=== PATIENT | female | born 1995 | race Caucasian/White ===

== ENCOUNTER → 2016-11-14 | Outpatient (CLI) | payer BC | END | disposition home or self-care (01) | LOC: C.RDSM 16:41 | PROVIDERS: ATTEND Orthopaedic Surgery | DX: M25.562 Pain in left knee (principal) ==

== ENCOUNTER → 2016-11-21 | Outpatient (CLI) | payer BC ==
--- NOTE | 2016-11-21 09:00 | DIAGNOSTIC IMAGING REPORT ---
MRI OF THE LEFT KNEE WITHOUT CONTRAST CLINICAL HISTORY: Left lateral knee pain following twisting injury. Previous ACL reconstruction. COMPARISON STUDY: Knee radiographs November 14, 2016. TECHNIQUE: Utilizing a 1.5 Padmini magnet and dedicated coil, multiplanar, multiecho imaging of the left knee was performed without intravenous or intraarticular contrast. FINDINGS: Alignment of the left knee is anatomic. There is a moderate-sized left knee joint effusion. There is no marrow edema or marrow replacement. The ACL graft is intact. The posterior cruciate ligament is intact. The medial collateral ligament and lateral collateral ligament complex are intact. There is moderate cartilage thinning with cortical irregularity of the lateral femoral condyle which suggests an old impaction injury likely related to the previous ACL tear. Otherwise, the cartilage within the three compartments appears intact. Note is made of a complex bucket handle tear of the medial meniscus with a large flipped fragment within the intercondylar notch located along the medial aspect of the anterior and posterior cruciate ligaments. The posterior horn of the lateral meniscus is somewhat diminutive but no definite lateral meniscal tear is identified. There is no evidence for fracture. There is no suspicious marrow replacement. IMPRESSION: 1. Extensive bucket-handle tear of the medial meniscus with large meniscal fragment within the intercondylar notch. 2. Status post ACL reconstruction. Graft intact. 3. Moderate-sized left knee joint effusion. 4. Evidence for an old impaction injury of the lateral femoral condyle. Electronically signed by: Abhinav Cordero M.D. 11/21/2016 8:59 AM Dictated Date/Time: 11/21/2016 8:43 AM
== END | disposition home or self-care (01) ==
LOC: C.MRI 07:50
PROVIDERS: ATTEND Orthopaedic Surgery
DX: S83.212A Bucket-handle tear of medial meniscus, current injury, left knee, initial encounter (principal); X58.XXXA Exposure to other specified factors, initial encounter; M25.462 Effusion, left knee; Z98.890 Other specified postprocedural states

== ENCOUNTER → 2016-12-29 | Day surgery (SDC) | payer BC ==
[2016-12-04 13:36] VITALS: Ht 163.8 cm; Wt 75.0 kg
[~2016-12-29] VITALS: Ht 163.8 cm; Wt 75.0 kg
[~2016-12-29] MED LIST: ATROPINE SULFATE 0.1 MG/ML 5ML SYR IV PRN; CEFAZOLIN 2000MG IV PUSH 10 ML IV SCH; DEXAMETHASONE SOD INJ 4 MG/ML VIAL ONE; EpHEDrine SULFATE 50MG/5ML SYR ONE; EpHEDrine SULFATE INJ 50 MG/ML AMP IV PRN; EpINEphrine HCL INJ 1 MG/ML 5ML SYRINGE ONE; FENTANYL CITRATE INJ 50 MCG/1 ML 2 ML VIAL IV PRN; FENTANYL CITRATE INJ 50 MCG/1 ML 2 ML VIAL ONE; HYDROmorphone INJ 1 MG/ML SYR IV PRN; KETOROLAC TROMETHAMINE 30 MG/ML VIAL ONE; LACTATED RINGER'S 1000ML 1,000 ML IV SCH; LIDO 2%/EPINEPHRINE 1:100000 20 ML VIAL INFIL ONE; LIDOCAINE HCL 2% 2 ML VIAL (20MG/ML) ONE; METOCLOPRAMIDE HCL INJ 5 MG/ML 2 ML VIAL IV PRN; MIDAZOLAM HCL 1 MG/ML 2ML VIAL ONE; MoRPHine SULFATE 4 MG/ML 1 ML CARP\\VIAL IV PRN; ONDANSETRON INJ 2 MG/ML 2 ML VIAL IV PRN; ONDANSETRON INJ 2 MG/ML 2 ML VIAL ONE; OXYCODONE/ACETAMINOPHEN 5-325 TAB PO PRN; PROMETHAZINE HCL INJ 12.5 MG in SODIUM CHLORIDE 0.9% 50ML 50 ML IV PRN; PROPOFOL IV EMULSION 10 MG/ML 20 ML VIAL IV ONE; ROPIVACAINE 0.5% 5 MG/ML 30 ML VIAL ONE; SODIUM CHLORIDE 0.9% 1000ML 1,000 ML IV SCH; SODIUM CHLORIDE 0.9% 1000ML IV SCH
--- NOTE | 2016-12-29 08:57 | History & Physical Bridge - SC ---
H&P Re-Evaluation Bridge Note: I have examined the patient, reviewed the History & Physical and in the interval since the performance of the History & Physical I have noted the following changes of clinical significance: No changes noted
--- NOTE | 2016-12-29 10:06 | Discharge Instructions-SurgCtr ---
Discharge Instructions Date of Service Dec 29, 2016. Visit Reason for Visit: Left Knee Medial Meniscus Tear Discharge Discharge Diagnosis / Problem: s/p Right knee arthrsoscopy partial medial meniscectomy Discharge Goals Goal(s): Decrease discomfort, Improve function, Increase independence Medications Restart Stopped Medication(s): Please take medications that were prescribed to you at your pre-operative history and physical appointment, which include pain medication, anti- inflammatory, and Aspirin for DVT prophylaxis. Activity Recommendations Activity Limitations: as noted below Lifting Limitations: gradually increase as tolerated Exercise/Sports Limitations: gradually increase as tolerated Shower/Bathe: keep incision dry Driving or Machine Use: resume 3 days after discharge (if motion improved and no longer taking narcotic pain medication) Weightbearing Status: Left weightbearing (as tolerated) Anesthesia . Post Anesthesia Instructions: If you have had General Anesthesia or IV Sedation: * Do not drive today. * Resume driving when surgeon permits. * Do not make important decisions or sign legal documents today. * Call surgeon for: 1. Temperature elevations greater than 101 degrees F. 2. Uncontrollable pain. 3. Excessive bleeding. 4. Persistent nausea and vomiting. 5. Medication intolerance (nausea, vomiting or rash). * For nausea and vomiting use only clear liquids such as: tea, soda, bouillon until nausea subsides, then gradually increase diet as tolerated. * If you have any concerns or questions, call your surgeon's office. If physician is unavailable and it is an emergency, call 101 or go to the nearest emergency room. . Instructions / Follow-Up Instructions / Follow-Up DIET: * Resume previous diet. MEDICATIONS: * Please take your prescriptions as instructed at your pre-op appointment and/ or see medication discharge instructions listed above. * If concerns develop, call your physician's office at . SPECIAL CARE INSTRUCTIONS: * Ice/Elevate as instructed. * Keep dressing clean, dry, intact. * Your surgical extremity may be discolored due to prepping agents used on the skin. A bluish-green tint is a normal variant and should not cause alarm. Call your doctor at [phone] if: * Temperature above 101 degrees * Pain not relieved by pain medicine ordered * There is increased drainage or redness from any incision * You have any unanswered questions, problems or concerns. FOLLOW UP VISIT: * If not already scheduled, please call the office at to schedule a follow-up appointment. Diet Recommendations Home Diet: resume previous diet Procedures Procedures Performed: left Knee Arthroscopic Partial Medial Meniscectomy Pending Studies Studies pending at discharge: no Medical Emergencies . Who to Call and When: Medical Emergencies: If at any time you feel your situation is an emergency, please call 911 immediately. . Non-Emergent Contact Non-Emergency issues call your: Primary Care Provider . . "Provider Documentation" section prepared by Jesus Manuel Larkin. . [place] Drug Monitoring Program Search Results: no issues identified
--- NOTE | 2016-12-29 10:30 | [facility] Post Operative Brief Note ---
Immediate Operative Summary Operative Date Dec 29, 2016. Pre-Operative Diagnosis left knee medial meniscus tear Post-Operative Diagnosis same Procedure(s) Performed left Knee Arthroscopic Partial Medial Meniscectomy, chondroplasty tibial plateau Surgeon Andrey Concrete Floater Surgeon(s) alan Stone Estimated Blood Loss minimal Findings same Specimens none Drains none Anesthesia general Complication(s) None Disposition Recovery Room / PACU
--- NOTE | 2016-12-29 11:28 | OPERATIVE REPORT ---
DATE OF OPERATION: 12/29/2016 PREOPERATIVE DIAGNOSIS: Left knee medial meniscus tear. POSTOPERATIVE DIAGNOSES: Same and chondromalacia of the lateral tibial plateau. OPERATION PERFORMED: 1. Left knee arthroscopy, partial medial meniscectomy. 2. Left knee chondroplasty of the lateral tibial plateau. ESTIMATED BLOOD LOSS: Minimal. SPECIMEN: None. COMPLICATIONS: None. IMPLANTS: None. INDICATIONS: Mary is a 21-year-old female who is status post a hamstring autograft ACL reconstruction in [place] in the past. She was sitting in [place] style. When she got up from sitting in [place] style approximately 6 weeks ago, she felt a pop in her knee with inability to extend her knee thereafter. MRI was obtained demonstrating a bucket handle medial meniscus tear. Her graft was noted to be intact. I had a long discussion with her about the risks and benefits of surgery, alternatives to surgery, and expected outcomes. We talked about partial medial meniscectomy versus meniscus repair. All questions were answered. Informed consent was signed. OPERATIVE FINDINGS: 1. The undersurface of the patella was normal. 2. The trochlea was normal. 3. The suprapatellar pouch was normal. 4. The medial and lateral gutters were free of any loose bodies. 5. The notch showed the PCL and the ACL graft to be intact. 6. The lateral compartment showed grade 1 chondromalacia of the lateral femoral condyle. There was grade 3 chondromalacia of the lateral tibial plateau, particularly laterally and posteriorly. 7. The medial compartment showed a bucket handle medial meniscus tear with a horizontal tear component of the posterior horn extending into the body. There was grade 1 chondromalacia of the medial femoral condyle and medial tibial plateau. The medial meniscus tear unfortunately was not repairable and was debrided back to a stable margin. A gentle chondroplasty was performed of the lateral tibial plateau. DESCRIPTION OF THE OPERATION: The patient was identified in the preoperative holding area where her surgical site was marked. She was brought back to the main operating room where she was placed on the operating room table and general anesthesia was administered. All bony prominences were padded. Perioperative antibiotics were administered. She was prepped and draped in the normal sterile fashion. Prior to incision, a multidisciplinary timeout was called. All in the room were in agreement. We began by injecting her portal sites with a total of 6 mL of 2% lidocaine. A lateral viewing portal was created, followed by a medial working portal under direct visualization. Diagnostic arthroscopy was then performed revealing the above findings. Once our diagnostic arthroscopy was complete, the cautery device was used to remove some hypertrophic synovium in the anterior aspect of the knee. We then reduced the meniscus tear back, and unfortunately, there was some redundancy of the meniscus. There was an oblique component to it as well as some radial tearing of the meniscus. This was at the white-white margin, and therefore, had a very low probability of healing. Additionally, the horizontal component of the posterior horn of the medial meniscus was unlikely to heal. Therefore, I introduced a narrow upbiter and used this to trim the bucket handle tear from its posterior attachment. The anterior attachment was then released and the meniscal fragment was pulled out through the medial portal without difficulty. The horizontal component of the posterior horn was then trimmed back to a stable margin with the combination of biters and a shaver. This left her with approximately 50% of her meniscus remaining. We took some pictures of the medial compartment, then moved into the lateral compartment. Probing of the lateral tibial plateau did reveal a small cartilage flap on the posterior aspect. Straight 3.5 mm shaver was used to trim this flap down to a stable margin. We then reinspected the gutters as well as the suprapatellar pouch and the posterior aspect of the knee to ensure there were no loose meniscal fragments floating around, which was confirmed. The arthroscope was then removed from the knee. The portals were closed with inverted 3-0 Monocryl, followed by Steri-Strips, 2 x 2's, Tegaderm dressing. She was then awoken from anesthesia and transferred to the recovery room in stable condition. POSTOPERATIVE COURSE: The patient will be discharged home from recovery room. She will be seen in physical therapy tomorrow. She will work on immediate range of motion and will be weightbearing as tolerated with crutches for the next 3-4 days. She will be on baby aspirin for DVT prophylaxis. I attest to the content of the Intraoperative Record and any orders documented therein. Any exception s are noted below.
[2016-12-29 11:31] VITALS: TEMP 36.9
[2016-12-29 11:54] VITALS: BP 117/72; PULSE 62; O2SAT 98
--- NOTE | 2016-12-29 11:56 | Anesthesia Progress Nt - [facility] ---
Anesthesia Post Op Note Date & Time Dec 29, 2016 at 11:56 Vital Signs Pain Intensity: 0 Vital Signs Past 12 Hours Date Time Temp Pulse Resp B/P (MAP) Pulse Ox O2 Delivery O2 Flow Rate FiO2 12/29/16 11:54 62 16 117/72 (87) 98 Room Air 12/29/16 11:31 36.9 67 16 120/78 (92) 98 Room Air 12/29/16 11:23 70 18 98 12/29/16 11:23 70 18 12/29/16 11:22 36.4 68 16 128/85 98 Room Air 12/29/16 11:21 128/85 12/29/16 11:18 65 20 12/29/16 11:18 64 20 98 12/29/16 11:16 127/61 12/29/16 11:13 67 20 12/29/16 11:13 63 20 100 12/29/16 11:11 123/71 12/29/16 11:08 73 20 12/29/16 11:08 69 20 100 12/29/16 11:06 123/70 12/29/16 11:03 82 29 100 12/29/16 11:03 82 29 12/29/16 11:01 126/70 12/29/16 10:58 71 19 12/29/16 10:58 70 19 100 12/29/16 10:55 131/80 12/29/16 10:53 90 17 12/29/16 10:53 88 17 100 12/29/16 10:51 127/69 12/29/16 10:48 88 21 100 12/29/16 10:48 89 21 12/29/16 10:46 122/74 12/29/16 10:44 118/72 12/29/16 10:43 36.4 97 20 118/72 99 Mask 6 12/29/16 07:27 36.6 78 16 135/77 (96) 98 Room Air Notes Mental Status: alert / awake / arousable, participated in evaluation Pt Amnestic to Procedure: Yes Nausea / Vomiting: adequately controlled Pain: adequately controlled Airway Patency, RR, SpO2: stable & adequate BP & HR: stable & adequate Hydration State: stable & adequate Anesthetic Complications: no major complications apparent
== END | disposition home or self-care (01) ==
LOC: X.SURG 06:35
PROVIDERS: ATTEND Orthopaedic Surgery
DX: S83.212A Bucket-handle tear of medial meniscus, current injury, left knee, initial encounter (principal); S83.242A Other tear of medial meniscus, current injury, left knee, initial encounter; X50.9XXA Other and unspecified overexertion or strenuous movements or postures, initial encounter; M94.262 Chondromalacia, left knee